=== PATIENT | male | born 1940 | race Hispanic/Latino ===

== ENCOUNTER → 2020-01-11 | Outpatient (CLI) | payer MEDICARE, OTHER ==
[~2020-01-11] MED LIST: FENTANYL CITRATE/PF 100MCG/2 ML INJ ONE; LIDOCAINE HCL 1% LOCAL INJ 20 ML VIAL ONE; LOVASTATIN40 MG PO; MIDAZOLAM HCL 2 MG/2 ML VIAL ONE; OMEPRAZOLE40 MG PO; TERAZOSIN HCL1 M1 PO; ULTRAM50 MG PO; Z.0.CRESTOR10 MG PO; Z.0.NEXIUM40 MG PO
[2020-01-11 08:29] LABS: HEMOGLOBIN 13.4 g/dL (14.0-18.0)
[2020-01-11 08:49] LABS: INR 0.88; PROTHROMBIN TIME 12.4 seconds (11.9-14.5)
[2020-01-11 08:50] LABS: PARTIAL THROMBOPLASTIN TIME 35.1 seconds (23.8-35.5)
--- NOTE | 2020-01-11 10:18 | Diagnostic Imaging Report ---
CT Guided biopsy of a lytic metastasis right anterior superior iliac spine. 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 Labor Relations Analyst: None. Modality: CT DOSE REDUCTION: The examination was performed according to departmental dose-optimization program which includes automated exposure control, adjustment of the mA and/or kV according to patient size and/or use of iterative reconstruction technique. Radiation dose for this procedure was 423.22 mGy-cm. Sedation: Versed 1 mg and Fentanyl 50 mcg was given intravenously for conscious sedation. Vital signs were monitored throughout the procedure by a dedicated RN under direct supervision of Dr. Zuniga, and remained stable. Physician intra-service sedation time was approximately 15 minutes. Anesthesia: 1% lidocaine local infiltration. Estimated blood loss: < 5 cc. Technique: Informed written consent was obtained. Discussion of risks, benefits, and alternatives were made with the patient. The patient expressed understanding and agreed to proceed. A universal timeout was performed prior to starting the procedure. The room personnel used personal protective equipment. The operators used sterile gloves in addition. The patient was laid supine on the CT table. A preliminary CT scan was performed through the region of interest to localize the target. A limited CT was performed through the region of interest with a marking grid in place to determine an access site, depth and angle. The site was prepped with chlorhexidine gluconate and draped in a standard sterile fashion. After local anesthesia a dermatotomy was performed. Using CT guidance, a Jamshidi needle was advanced into the target. This was followed by performance of a core biopsy. The specimens were submitted in formalin and passed on to pathology. The patient was transferred to the recovery area on post lung biopsy protocol. Complications: None immediate. Specimen: A core biopsy submitted in formalin to Pathology. Impression: Successful CT guided core biopsy of the right anterior superior iliac spine as described above. Thank you for the opportunity to assist in the care of your patient. Signed by: Pérez Zuniga MD on 01/11/2020 10:15 AM
--- NOTE | 2020-01-12 13:51 | NUR ---
called for followup call. no answer
--- NOTE | 2020-01-12 13:55 | NUR ---
called back. states patient is doing great no pain or bleeding. has already called dr art office to inform them procedure was done and waiting for call back. only question was on followup and was very pleased with service
== END | disposition home or self-care (01) ==
LOC: CT 08:10 → EDSTATUS 09:00
PROVIDERS: ATTEND Urology
DX: D40.0 Neoplasm of uncertain behavior of prostate (principal); C41.2 Malignant neoplasm of vertebral column; Z01.812 Encounter for preprocedural laboratory examination; Z11.59 Encounter for screening for other viral diseases
CPT/HCPCS: 36415; 38222; 77012; 85014; 85049; 85610; 85730; 88307; 88342; J2250; J3010; U0002; 88304; J2001